=== PATIENT | male | born 1960 | race Caucasian/White ===

== ENCOUNTER 2018-01-01 21:25 | Inpatient (IN) ==
[2018-01-01] MEDS ORDERED: MORPHINE 2 MG/1 ML SYRINGE IV STA (23:46)
[2018-01-01] MEDS ORDERED: NITROGLYCERIN 2% OINT 1 INCH/GM PACK TOP STA (23:46)
[2018-01-01] MEDS ORDERED: ONDANSETRON 4 MG/2 ML VIAL IV STA (23:46)
[2018-01-01] MEDS ORDERED: ASPIRIN 325 MG TABLET PO STA (23:46)
[2018-01-01] MEDS ORDERED: ALUM/MAG/SIMETH/LIDO VISC 1:1 30 ML BOTTLE PO STA (23:46)
[2018-01-01] MEDS ORDERED: PANTOPRAZOLE 40 MG VIAL IV STA (23:46)
[2018-01-01] MEDS ORDERED: PANTOPRAZOLE 40 MG VIAL IV ONE (23:57)
[2018-01-01] MEDS ORDERED: ONDANSETRON 4 MG/2 ML VIAL ONE (23:57)
[2018-01-01] MEDS ORDERED: ASPIRIN 325 MG TABLET ONE (23:57)
[2018-01-01] MEDS ORDERED: MORPHINE 2 MG/1 ML SYRINGE ONE (23:57)
[2018-01-01] MEDS ORDERED: NITROGLYCERIN 2% OINT 1 INCH/GM PACK TOP ONE (23:57)
[2018-01-01] MEDS ORDERED: ALUM/MAG/SIMETH/LIDO VISC 1:1 30 ML BOTTLE PO ONE (23:58)
[2018-01-02 00:36] LABS: Apearance,Urine CLEAR (Clear); Bilirubin,Urine Negative (Negative); Blood, Urine Negative (Negative); Glucose,Urine (UA) Negative (Negative); Ketones,Urine Negative (Negative); Nitrite,Urine Negative (Negative); Protein,Urine Negative; Urine Color Straw (Yellow); Urine Specific Gravity 1.005 (1.001-1.035); Urine Urobilinogen < 2.0 EU/DL (0.2-1.0); WBC,Urine <1 /HPF (0-6)
[2018-01-02 00:48] LABS: Barbiturates Screen,Urine Negative (Negative); Benzodiazepines Screen,Urine Negative (Negative); Cannabinoid Screen,Urine Negative (Negative); Opiate Screen,Urine Negative (Negative); Phencyclidine Screen,Urine Negative (Negative)
[2018-01-02 01:18] LABS: Basophils # 0.1 10*3/uL (0.0-0.2); Basophils % 0.7 % (0.0-0.8); Eosinophils # 0.2 10*3/uL (0.0-0.87); Eosinophils % 2.8 % (0.00-10.9); Hematocrit 44.8 VOL% (42.0-52.0); Hemoglobin 15.9 GM/DL (14.0-18.0); Immature Granulocytes % 0.4 %; Immature Granulocytes Absolute 0.03 #; Lymphocytes # 2.2 10*3/uL (1.4-4.0); Lymphocytes % 29.2 % (21.2-54.2); Mean Corpuscular HGB Conc 35.5 GM/DL (32-36); Mean Corpuscular Hemoglobin 33 PG (27-34); Mean Corpuscular Volume 93.9 FL (87-102); Monocytes # 0.4 10*3/uL (0.11-0.8); Monocytes % 5.1 % (1.7-12.7); Neutrophils # 4.7 10*3/uL (1.4-7.4); Neutrophils % 61.8 % (38.7-73.9); Platelet Count 133 T/CUMM (130-400); Red Blood Count 4.77 MC/CUMM (3.8-5.5); Red Cell Distribution Width 11.7 % (9.3-17.3); White Blood Count 7.6 T/CUMM (4-12)
[2018-01-02 01:27] LABS: INR 0.9
[2018-01-02 01:47] LABS: Potassium 3.7 MMOL/L (3.5-5.1)
[2018-01-02 01:49] LABS: Calcium 9.8 MG/DL (8.5-10.1)
[2018-01-02 01:50] LABS: Albumin 4.4 G/DL (3.4-5.0)
[2018-01-02 01:51] LABS: Osmolality,Calculated 276.7 MOS/KG (273-304)
[2018-01-02 01:55] LABS: Bilirubin,Total 0.5 MG/DL (0.2-1.0); Total Protein 7.8 G/DL (6.4-8.3)
[2018-01-02 03:19] LABS: Platelet Estimate Normal
[2018-01-02] MEDS ORDERED: MAGNESIUM SULF RIDER 4 GM in PREMIX 1 EACH IV PRN (03:46)
[2018-01-02] MEDS ORDERED: ONDANSETRON 4 MG/2 ML VIAL IV PRN (03:46)
[2018-01-02] MEDS ORDERED: DEXTROSE 50% 25 GM/50 ML VIAL IV PRN (03:46)
[2018-01-02] MEDS ORDERED: GLUCAGON 1 MG VIAL IM PRN (03:46)
[2018-01-02] MEDS ORDERED: SODIUM CHLORIDE 0.9% 1,000 ML IV SCH (03:46)
[2018-01-02] MEDS ORDERED: MAGNESIUM SULF RIDER 2 GM in PREMIX 1 EACH IV PRN (03:46)
[2018-01-02] MEDS ORDERED: POTASSIUM CHLORIDE 20 MEQ TABLET PO PRN (03:46)
[2018-01-02 05:23] LABS: Basophils % 0.5 % (0.0-0.8); Eosinophils # 0.2 10*3/uL (0.0-0.87); Eosinophils % 2.9 % (0.00-10.9); Hematocrit 46.8 VOL% (42.0-52.0); Hemoglobin 16.4 GM/DL (14.0-18.0); Immature Granulocytes % 0.5 %; Immature Granulocytes Absolute 0.04 #; Lymphocytes # 2.7 10*3/uL (1.4-4.0); Mean Corpuscular Hemoglobin 34 PG (27-34); Mean Corpuscular Volume 95.7 FL (87-102); Mean Platelet Volume 10.9 FL (9.6-12.0); Monocytes # 0.5 10*3/uL (0.11-0.8); Monocytes % 5.9 % (1.7-12.7); Neutrophils # 4.2 10*3/uL (1.4-7.4); Neutrophils % 55.2 % (38.7-73.9); Platelet Count 192 T/CUMM (130-400); Red Blood Count 4.89 MC/CUMM (3.8-5.5); Red Cell Distribution Width 11.9 % (9.3-17.3); White Blood Count 7.6 T/CUMM (4-12)
[2018-01-02 06:42] LABS: Albumin 4.1 G/DL (3.4-5.0); Bilirubin,Total 0.6 MG/DL (0.2-1.0); Calcium 9.4 MG/DL (8.5-10.1); Osmolality,Calculated 275.8 MOS/KG (273-304); Potassium 3.8 MMOL/L (3.5-5.1); Thyroid Stimulating Hormone 2.1 uIU/ml (0.358-3.74); Total Protein 6.8 G/DL (6.4-8.3); VLDL CHOLESTEROL 55.2 MG/DL
[2018-01-02 06:52] LABS: Troponin I Only 0.016 NG/ML (0.00-0.045)
[2018-01-02] MEDS: INSULIN REGULAR 100 UNIT/ML SUBCUT SCH ×4 (08:00→21:13)
[2018-01-02] MEDS: DIGOXIN 0.125 MG TABLET PO SCH (08:39)
[2018-01-02] MEDS: SOTALOL 80 MG TABLET PO SCH ×2 (08:39→21:12)
[2018-01-02] MEDS: FUROSEMIDE 40 MG TABLET PO SCH ×2 (08:40→15:57)
[2018-01-02] MEDS: GLIMEPIRIDE 2 MG TABLET PO SCH (08:40)
[2018-01-02] MEDS: ASPIRIN EC 81 MG TABLET PO SCH (08:40)
[2018-01-02] MEDS: LORATADINE 10 MG TABLET PO SCH ×2 (08:40→21:13)
[2018-01-02] MEDS: PANTOPRAZOLE 40 MG TABLET PO SCH (08:41)
[2018-01-02] MEDS: LACTOBACILLUS ACIDOPHILUS/BULGARICUS CAPLET PO SCH ×2 (08:41→21:11)
[2018-01-02] MEDS: ATORVASTATIN 20 MG TABLET PO SCH (08:41)
[2018-01-02] MEDS ORDERED: CARVEDILOL 12.5 MG TABLET PO SCH (09:00)
[2018-01-02 13:43] LABS: Troponin I Only < 0.015 NG/ML (0.00-0.045)
[2018-01-02 20:19] LABS: Troponin I Only < 0.015 NG/ML (0.00-0.045)
[2018-01-02] MEDS: POTASSIUM CHLORIDE 20 MEQ TABLET PO SCH (21:12)
[2018-01-03 05:14] LABS: Basophils # 0.1 10*3/uL (0.0-0.2); Basophils % 0.6 % (0.0-0.8); Eosinophils # 0.2 10*3/uL (0.0-0.87); Eosinophils % 2.8 % (0.00-10.9); Hematocrit 46.6 VOL% (42.0-52.0); Hemoglobin 16.6 GM/DL (14.0-18.0); Immature Granulocytes % 0.5 %; Immature Granulocytes Absolute 0.04 #; Lymphocytes # 2.6 10*3/uL (1.4-4.0); Mean Corpuscular HGB Conc 35.6 GM/DL (32-36); Mean Corpuscular Hemoglobin 33 PG (27-34); Mean Corpuscular Volume 92.6 FL (87-102); Mean Platelet Volume 10.8 FL (9.6-12.0); Monocytes # 0.5 10*3/uL (0.11-0.8); Monocytes % 6.1 % (1.7-12.7); Neutrophils # 4.4 10*3/uL (1.4-7.4); Platelet Count 195 T/CUMM (130-400); Red Blood Count 5.03 MC/CUMM (3.8-5.5); Red Cell Distribution Width 11.9 % (9.3-17.3); White Blood Count 7.8 T/CUMM (4-12)
[2018-01-03 05:44] LABS: Calcium 8.8 MG/DL (8.5-10.1); Osmolality,Calculated 279.5 MOS/KG (273-304); Potassium 3.7 MMOL/L (3.5-5.1)
[2018-01-03] MEDS: ASPIRIN EC 81 MG TABLET PO SCH (10:15)
[2018-01-03] MEDS: SOTALOL 80 MG TABLET PO SCH ×2 (10:16→21:50)
[2018-01-03] MEDS: GLIMEPIRIDE 2 MG TABLET PO SCH (10:23)
[2018-01-03] MEDS: LACTOBACILLUS ACIDOPHILUS/BULGARICUS CAPLET PO SCH ×2 (10:23→21:51)
[2018-01-03] MEDS: FUROSEMIDE 40 MG TABLET PO SCH ×2 (10:23→18:13)
[2018-01-03] MEDS: ATORVASTATIN 20 MG TABLET PO SCH (10:24)
[2018-01-03] MEDS: MULTIVITAMIN (CENTRUM) TABLET PO SCH (10:24)
[2018-01-03] MEDS: PANTOPRAZOLE 40 MG TABLET PO SCH (10:24)
[2018-01-03] MEDS: LORATADINE 10 MG TABLET PO SCH ×2 (10:24→21:51)
[2018-01-03] MEDS: POTASSIUM CHLORIDE 20 MEQ TABLET PO SCH ×2 (10:24→21:51)
[2018-01-03] MEDS: INSULIN REGULAR 100 UNIT/ML SUBCUT SCH ×4 (10:26→21:53)
[2018-01-03] MEDS: MONTELUKAST 10 MG TABLET PO SCH (10:27)
[2018-01-03] MEDS ORDERED: MAGNESIUM SULF RIDER 2 GM in PREMIX 1 EACH IV PRN (12:32)
[2018-01-03] MEDS ORDERED: POTASSIUM CHLORIDE RIDER 10 MEQ in PREMIX 1 EACH IV PRN (12:32)
[2018-01-03] MEDS: DEXTROSE 5% NACL 0.45% 1,000 ML IV SCH ×2 (18:17→21:52)
[2018-01-04] MEDS: DEXTROSE 5% NACL 0.45% 1,000 ML IV SCH ×5 (02:27→22:18)
[2018-01-04 05:18] LABS: Basophils # 0.1 10*3/uL (0.0-0.2); Basophils % 0.7 % (0.0-0.8); Eosinophils # 0.3 10*3/uL (0.0-0.87); Eosinophils % 3.5 % (0.00-10.9); Hematocrit 44.5 VOL% (42.0-52.0); Hemoglobin 15.9 GM/DL (14.0-18.0); Immature Granulocytes % 0.3 %; Immature Granulocytes Absolute 0.02 #; Lymphocytes # 2.7 10*3/uL (1.4-4.0); Lymphocytes % 36.9 % (21.2-54.2); Mean Corpuscular HGB Conc 35.7 GM/DL (32-36); Mean Corpuscular Hemoglobin 33 PG (27-34); Mean Corpuscular Volume 92.9 FL (87-102); Mean Platelet Volume 10.8 FL (9.6-12.0); Monocytes # 0.6 10*3/uL (0.11-0.8); Monocytes % 7.4 % (1.7-12.7); Neutrophils # 3.8 10*3/uL (1.4-7.4); Neutrophils % 51.2 % (38.7-73.9); Platelet Count 177 T/CUMM (130-400); Red Blood Count 4.79 MC/CUMM (3.8-5.5); Red Cell Distribution Width 11.8 % (9.3-17.3); White Blood Count 7.4 T/CUMM (4-12)
[2018-01-04 05:55] LABS: Calcium 8.2 MG/DL (8.5-10.1); Osmolality,Calculated 281.4 MOS/KG (273-304)
[2018-01-04] MEDS: POTASSIUM CHLORIDE 20 MEQ TABLET PO SCH ×2 (08:22→21:35)
[2018-01-04] MEDS: SOTALOL 80 MG TABLET PO SCH ×2 (08:23→21:35)
[2018-01-04] MEDS: PANTOPRAZOLE 40 MG TABLET PO SCH (08:24)
[2018-01-04] MEDS: LACTOBACILLUS ACIDOPHILUS/BULGARICUS CAPLET PO SCH ×2 (08:24→21:35)
[2018-01-04] MEDS: ATORVASTATIN 20 MG TABLET PO SCH (08:25)
[2018-01-04] MEDS: ASPIRIN EC 81 MG TABLET PO SCH (08:25)
[2018-01-04] MEDS: DIGOXIN 0.125 MG TABLET PO SCH (08:25)
[2018-01-04] MEDS: MULTIVITAMIN (CENTRUM) TABLET PO SCH (08:25)
[2018-01-04] MEDS: FUROSEMIDE 40 MG TABLET PO SCH ×2 (08:26→16:29)
[2018-01-04] MEDS: GLIMEPIRIDE 2 MG TABLET PO SCH (08:26)
[2018-01-04] MEDS: INSULIN REGULAR 100 UNIT/ML SUBCUT SCH ×4 (08:26→21:36)
[2018-01-04] MEDS: LORATADINE 10 MG TABLET PO SCH ×2 (08:27→21:36)
[2018-01-04] MEDS: MONTELUKAST 10 MG TABLET PO SCH (21:35)
[2018-01-05] MEDS: DEXTROSE 5% NACL 0.45% 1,000 ML IV SCH ×2 (03:08→04:16)
[2018-01-05 04:47] LABS: Basophils # 0.1 10*3/uL (0.0-0.2); Basophils % 0.7 % (0.0-0.8); Eosinophils # 0.2 10*3/uL (0.0-0.87); Eosinophils % 2.8 % (0.00-10.9); Hematocrit 45.2 VOL% (42.0-52.0); Hemoglobin 15.7 GM/DL (14.0-18.0); Immature Granulocytes % 0.3 %; Immature Granulocytes Absolute 0.02 #; Lymphocytes # 2.5 10*3/uL (1.4-4.0); Lymphocytes % 33.5 % (21.2-54.2); Mean Corpuscular HGB Conc 34.7 GM/DL (32-36); Mean Corpuscular Hemoglobin 33 PG (27-34); Mean Corpuscular Volume 94.2 FL (87-102); Mean Platelet Volume 10.7 FL (9.6-12.0); Monocytes # 0.6 10*3/uL (0.11-0.8); Monocytes % 7.4 % (1.7-12.7); Neutrophils # 4.1 10*3/uL (1.4-7.4); Neutrophils % 55.3 % (38.7-73.9); Platelet Count 183 T/CUMM (130-400); Red Cell Distribution Width 11.9 % (9.3-17.3); White Blood Count 7.4 T/CUMM (4-12)
[2018-01-05 05:17] LABS: Calcium 8.3 MG/DL (8.5-10.1); Osmolality,Calculated 278.5 MOS/KG (273-304); Potassium 4.1 MMOL/L (3.5-5.1)
[2018-01-05] MEDS ORDERED: DIAZEPAM 5 MG TABLET PO ONE (08:00)
[2018-01-05] MEDS ORDERED: diphenhydrAMINE CAP 25 MG CAPSULE PO ONE (08:00)
[2018-01-05] MEDS ORDERED: HEPARIN/NACL 0.9% 2 UNITS/ML 1,000 ML IV ONE (08:09)
[2018-01-05] MEDS ORDERED: VERAPAMIL 5 MG/2 ML VIAL ONE (08:12)
[2018-01-05] MEDS ORDERED: MIDAZOLAM 2 MG/2 ML VIAL ONE (08:12)
[2018-01-05] MEDS ORDERED: fentaNYL 100 MCG/2 ML VIAL ONE (08:12)
[2018-01-05] MEDS ORDERED: NITROGLYCERIN DRIP 50 MG/250 ML BOTTLE IV ONE (08:12)
[2018-01-05] MEDS ORDERED: LIDOCAINE 1%/EPI INJ 20 ML VIAL ONE (08:12)
[2018-01-05] MEDS ORDERED: LIDOCAINE 1% 20 ML VIAL ONE (08:15)
[2018-01-05] MEDS ORDERED: ASPIRIN 325 MG TABLET ONE (08:25)
[2018-01-05] MEDS ORDERED: methylPREDNISolone SOD SUC 125 MG/2 ML VIAL ONE (08:31)
[2018-01-05] MEDS ORDERED: ENOXAPARIN 60 MG/0.6 ML SYRINGE ONE (08:38)
[2018-01-05] MEDS: MULTIVITAMIN (CENTRUM) TABLET PO SCH (09:29)
[2018-01-05] MEDS: ATORVASTATIN 20 MG TABLET PO SCH (09:29)
[2018-01-05] MEDS: GLIMEPIRIDE 2 MG TABLET PO SCH (09:29)
[2018-01-05] MEDS: MONTELUKAST 10 MG TABLET PO SCH (09:29)
[2018-01-05] MEDS: SOTALOL 80 MG TABLET PO SCH (09:29)
[2018-01-05] MEDS: LACTOBACILLUS ACIDOPHILUS/BULGARICUS CAPLET PO SCH (09:29)
[2018-01-05] MEDS: LORATADINE 10 MG TABLET PO SCH (09:30)
[2018-01-05] MEDS: INSULIN REGULAR 100 UNIT/ML SUBCUT SCH ×2 (09:30→16:09)
[2018-01-05] MEDS: POTASSIUM CHLORIDE 20 MEQ TABLET PO SCH (09:30)
[2018-01-05] MEDS: PANTOPRAZOLE 40 MG TABLET PO SCH (09:30)
[2018-01-05] MEDS: ASPIRIN EC 81 MG TABLET PO SCH (09:30)
[2018-01-05] MEDS: FUROSEMIDE 40 MG TABLET PO SCH (09:30)
[2018-01-05] MEDS ORDERED: BISACODYL 5 MG TABLET PO PRN (13:52)
[2018-01-05] MEDS ORDERED: ACETAMINOPHEN 325 MG TABLET PO PRN (13:52)
[2018-01-05] MEDS ORDERED: ZALEPLON 5 MG CAPSULE PO PRN (13:52)
[2018-01-05] MEDS ORDERED: guaiFENesin/DM ER 600-30 MG TABLET PO PRN (13:52)
[2018-01-05 15:57] VITALS: BP 121/72
[2018-01-05] MEDS ORDERED: PANTOPRAZOLE 40 MG TABLET PO SCH (21:00)
== END 2018-01-05 15:20 | disposition home or self-care (01) | DRG 287 ==
LOC: N.ED 21:25 → N.EDINP 01-02 02:30 → N.ICU 01-02 03:50 → N.TELEN 01-02 20:33
PROVIDERS: ADMIT Internal Medicine Cardiovascular Disease; ATTEND Internal Medicine Cardiovascular Disease
PROC: CLCCHCL (ICD-10-PCS; 2018-01-05 09:15)

== ENCOUNTER 2018-04-21 05:52 | Observation (INO) ==
[2018-04-21 06:56] LABS: Basophils # 0.1 10*3/uL (0.0-0.2); Basophils % 0.8 % (0.0-0.8); Eosinophils # 0.1 10*3/uL (0.0-0.87); Eosinophils % 2.3 % (0.00-10.9); Hematocrit 45.2 VOL% (42.0-52.0); Hemoglobin 15.5 GM/DL (14.0-18.0); Immature Granulocytes % 0.5 %; Immature Granulocytes Absolute 0.03 #; Lymphocytes % 32.8 % (21.2-54.2); Mean Corpuscular HGB Conc 34.3 GM/DL (32-36); Mean Corpuscular Hemoglobin 33 PG (27-34); Mean Corpuscular Volume 95.6 FL (87-102); Mean Platelet Volume 10.3 FL (9.6-12.0); Monocytes # 0.4 10*3/uL (0.11-0.8); Neutrophils # 3.5 10*3/uL (1.4-7.4); Neutrophils % 57.6 % (38.7-73.9); Platelet Count 174 T/CUMM (130-400); Red Blood Count 4.73 MC/CUMM (3.8-5.5); Red Cell Distribution Width 12.1 % (9.3-17.3); White Blood Count 6.1 T/CUMM (4-12)
[2018-04-21 07:32] LABS: Calcium 8.6 MG/DL (8.5-10.1); Osmolality,Calculated 278.4 MOS/KG (273-304); Potassium 3.9 MMOL/L (3.5-5.1)
[2018-04-21 08:52] LABS: Apearance,Urine CLEAR (Clear); Bilirubin,Urine Negative (Negative); Blood, Urine Negative (Negative); Glucose,Urine (UA) Negative (Negative); Ketones,Urine Negative (Negative); Mucus,Urine Occasional /LPF (Occasional); Nitrite,Urine Negative (Negative); Protein,Urine Negative; RBC,Urine 1 /HPF (0-4); Urine Color Yellow (Yellow); Urine Specific Gravity 1.016 (1.001-1.035); Urine Urobilinogen < 2.0 EU/DL (0.2-1.0); WBC,Urine <1 /HPF (0-6)
[2018-04-22 03:15] LABS: Basophils % 0.4 % (0.0-0.8); Eosinophils # 0.1 10*3/uL (0.0-0.87); Eosinophils % 1.5 % (0.00-10.9); Hematocrit 41.1 VOL% (42.0-52.0); Hemoglobin 13.9 GM/DL (14.0-18.0); Immature Granulocytes % 0.4 %; Immature Granulocytes Absolute 0.03 #; Lymphocytes # 1.7 10*3/uL (1.4-4.0); Lymphocytes % 24.6 % (21.2-54.2); Mean Corpuscular HGB Conc 33.8 GM/DL (32-36); Mean Corpuscular Hemoglobin 32 PG (27-34); Mean Corpuscular Volume 95.1 FL (87-102); Mean Platelet Volume 10.5 FL (9.6-12.0); Monocytes # 0.3 10*3/uL (0.11-0.8); Monocytes % 4.9 % (1.7-12.7); Neutrophils # 4.6 10*3/uL (1.4-7.4); Neutrophils % 68.2 % (38.7-73.9); Platelet Count 145 T/CUMM (130-400); Red Blood Count 4.32 MC/CUMM (3.8-5.5); Red Cell Distribution Width 12.3 % (9.3-17.3); White Blood Count 6.8 T/CUMM (4-12)
[2018-04-22 03:35] LABS: Calcium 8.1 MG/DL (8.5-10.1); Osmolality,Calculated 276.5 MOS/KG (273-304); Potassium 3.8 MMOL/L (3.5-5.1)
[2018-04-23 05:43] LABS: Calcium 8.4 MG/DL (8.5-10.1); Osmolality,Calculated 278.4 MOS/KG (273-304); Potassium 3.6 MMOL/L (3.5-5.1)
[2018-04-23 11:47] VITALS: BP 120/66
== END 2018-04-23 13:24 | disposition home or self-care (01) ==
LOC: N.ICU 05:52 → N.CL 05:52 → N.ICU 12:35 → N.TELEN 04-22 18:31
PROVIDERS: ADMIT Internal Medicine Clinical Cardiac Electrophysiology; ATTEND Internal Medicine Clinical Cardiac Electrophysiology
PROC: CLEPAVT (ICD-10-PCS; 2018-04-21 08:45)

== ENCOUNTER 2018-04-30 15:54 | Inpatient (IN) ==
[2018-04-30] MEDS ORDERED: ZALEPLON 5 MG CAPSULE PO PRN (16:21)
[2018-04-30] MEDS ORDERED: ONDANSETRON 4 MG/2 ML VIAL IV PRN (16:21)
[2018-04-30] MEDS ORDERED: ACETAMINOPHEN 325 MG TABLET PO PRN (16:21)
[2018-04-30] MEDS ORDERED: MAGNESIUM SULF RIDER 4 GM in PREMIX 1 EACH IV PRN (16:21)
[2018-04-30] MEDS ORDERED: MAGNESIUM SULF RIDER 2 GM in PREMIX 1 EACH IV PRN (16:21)
[2018-04-30] MEDS ORDERED: MORPHINE 4 MG/1 ML VIAL IV PRN (16:21)
[2018-04-30] MEDS ORDERED: ENOXAPARIN 40 MG/0.4 ML SYRINGE SUBCUT SCH (16:30)
[2018-04-30] MEDS ORDERED: diphenhydrAMINE CAP 25 MG CAPSULE PO PRN (16:33)
[2018-04-30] MEDS: MEXILETINE 150 MG CAPSULE PO SCH ×2 (17:22→21:00)
[2018-04-30 18:49] LABS: Basophils % 0.5 % (0.0-0.8); Eosinophils # 0.1 10*3/uL (0.0-0.87); Eosinophils % 1.7 % (0.00-10.9); Hematocrit 41.1 VOL% (42.0-52.0); Hemoglobin 14.5 GM/DL (14.0-18.0); Immature Granulocytes % 0.3 %; Immature Granulocytes Absolute 0.02 #; Lymphocytes # 2.3 10*3/uL (1.4-4.0); Lymphocytes % 38.8 % (21.2-54.2); Mean Corpuscular HGB Conc 35.3 GM/DL (32-36); Mean Corpuscular Hemoglobin 33 PG (27-34); Mean Corpuscular Volume 93.2 FL (87-102); Mean Platelet Volume 10.7 FL (9.6-12.0); Monocytes # 0.3 10*3/uL (0.11-0.8); Monocytes % 5.5 % (1.7-12.7); Neutrophils # 3.2 10*3/uL (1.4-7.4); Neutrophils % 53.2 % (38.7-73.9); Platelet Count 207 T/CUMM (130-400); Red Blood Count 4.41 MC/CUMM (3.8-5.5)
[2018-04-30 19:24] LABS: Albumin 3.4 G/DL (3.4-5.0); Bilirubin,Total 0.4 MG/DL (0.2-1.0); Calcium 8.5 MG/DL (8.5-10.1); Osmolality,Calculated 279.5 MOS/KG (273-304); Potassium 3.4 MMOL/L (3.5-5.1); Thyroid Stimulating Hormone 2.01 uIU/ml (0.358-3.74); Total Protein 6.9 G/DL (6.4-8.3)
[2018-04-30] MEDS: LORATADINE 10 MG TABLET PO SCH (20:56)
[2018-04-30] MEDS: LACTOBACILLUS ACIDOPHILUS/BULGARICUS CAPLET PO SCH (20:57)
[2018-04-30] MEDS: SOTALOL 80 MG TABLET PO SCH (20:57)
[2018-04-30] MEDS: APIXABAN 5 MG TABLET PO SCH (20:58)
[2018-04-30] MEDS: POTASSIUM CHLORIDE 20 MEQ TABLET PO SCH (20:58)
[2018-04-30] MEDS: FLUTICASONE 50 MCG NASAL SPRAY 16 GM BOTTLE BOTH NARES SCH (20:59)
[2018-04-30] MEDS: POTASSIUM CHLORIDE 20 MEQ/15 ML UDCUP PER TUBE PRN ×2 (21:27→23:40)
[2018-04-30] MEDS: MONTELUKAST 10 MG TABLET PO SCH (21:27)
[2018-04-30] MEDS: FUROSEMIDE 40 MG TABLET PO SCH (21:27)
[2018-05-01] MEDS: POTASSIUM CHLORIDE 20 MEQ/15 ML UDCUP PER TUBE PRN (02:05)
[2018-05-01 05:21] LABS: Basophils % 0.6 % (0.0-0.8); Eosinophils # 0.2 10*3/uL (0.0-0.87); Eosinophils % 2.3 % (0.00-10.9); Hematocrit 43.9 VOL% (42.0-52.0); Immature Granulocytes % 0.3 %; Immature Granulocytes Absolute 0.02 #; Lymphocytes # 2.6 10*3/uL (1.4-4.0); Lymphocytes % 40.5 % (21.2-54.2); Mean Corpuscular HGB Conc 34.2 GM/DL (32-36); Mean Corpuscular Hemoglobin 33 PG (27-34); Mean Corpuscular Volume 95.6 FL (87-102); Mean Platelet Volume 9.9 FL (9.6-12.0); Monocytes # 0.5 10*3/uL (0.11-0.8); Monocytes % 7.8 % (1.7-12.7); Neutrophils # 3.1 10*3/uL (1.4-7.4); Neutrophils % 48.5 % (38.7-73.9); Platelet Count 199 T/CUMM (130-400); Red Blood Count 4.59 MC/CUMM (3.8-5.5); Red Cell Distribution Width 12.1 % (9.3-17.3); White Blood Count 6.4 T/CUMM (4-12)
[2018-05-01 05:57] LABS: Albumin 3.7 G/DL (3.4-5.0); Bilirubin,Total 0.7 MG/DL (0.2-1.0); Calcium 8.4 MG/DL (8.5-10.1); Osmolality,Calculated 281.3 MOS/KG (273-304); Potassium 4.2 MMOL/L (3.5-5.1); Total Protein 7.2 G/DL (6.4-8.3)
[2018-05-01] MEDS: FUROSEMIDE 40 MG TABLET PO SCH ×2 (07:39→17:05)
[2018-05-01] MEDS: valACYclovir 500 MG TABLET PO SCH (07:39)
[2018-05-01] MEDS: MEXILETINE 150 MG CAPSULE PO SCH ×3 (07:39→21:00)
[2018-05-01] MEDS: GLIMEPIRIDE 2 MG TABLET PO SCH (07:39)
[2018-05-01] MEDS ORDERED: MAGNESIUM OXIDE 400 MG TABLET PO ONE (08:43)
[2018-05-01] MEDS: DOCUSATE SODIUM 100 MG CAPSULE PO PRN (08:56)
[2018-05-01] MEDS: APIXABAN 5 MG TABLET PO SCH ×2 (08:56→20:55)
[2018-05-01] MEDS: POTASSIUM CHLORIDE 20 MEQ TABLET PO SCH ×2 (08:56→20:55)
[2018-05-01] MEDS: ASPIRIN EC 81 MG TABLET PO SCH (08:57)
[2018-05-01] MEDS: PANTOPRAZOLE 40 MG TABLET PO SCH (08:57)
[2018-05-01] MEDS: LACTOBACILLUS ACIDOPHILUS/BULGARICUS CAPLET PO SCH ×2 (08:57→20:55)
[2018-05-01] MEDS: SOTALOL 80 MG TABLET PO SCH ×2 (08:57→20:55)
[2018-05-01] MEDS: ATORVASTATIN 20 MG TABLET PO SCH (08:57)
[2018-05-01] MEDS ORDERED: PANTOPRAZOLE 40 MG TABLET PO SCH (09:00)
[2018-05-01] MEDS: MULTIVITAMIN (CENTRUM) TABLET PO SCH (09:07)
[2018-05-01] MEDS: LORATADINE 10 MG TABLET PO SCH ×2 (10:40→20:55)
[2018-05-01] MEDS: LOSARTAN 25 MG TABLET PO SCH (10:41)
[2018-05-01] MEDS: FLUTICASONE 50 MCG NASAL SPRAY 16 GM BOTTLE BOTH NARES SCH ×2 (10:42→20:56)
[2018-05-01] MEDS: NITROGLYCERIN 2% OINT 1 INCH/GM PACK TOP SCH ×2 (14:45→20:59)
[2018-05-01] MEDS: MONTELUKAST 10 MG TABLET PO SCH (20:55)
[2018-05-01] MEDS ORDERED: MEXILETINE 150 MG CAPSULE PO SCH (21:00)
[2018-05-02 04:09] LABS: Basophils % 0.6 % (0.0-0.8); Eosinophils # 0.1 10*3/uL (0.0-0.87); Eosinophils % 1.8 % (0.00-10.9); Hematocrit 42.8 VOL% (42.0-52.0); Hemoglobin 14.8 GM/DL (14.0-18.0); Immature Granulocytes % 0.4 %; Immature Granulocytes Absolute 0.03 #; Lymphocytes # 2.6 10*3/uL (1.4-4.0); Lymphocytes % 35.3 % (21.2-54.2); Mean Corpuscular HGB Conc 34.6 GM/DL (32-36); Mean Corpuscular Hemoglobin 33 PG (27-34); Mean Corpuscular Volume 93.9 FL (87-102); Monocytes # 0.5 10*3/uL (0.11-0.8); Monocytes % 6.7 % (1.7-12.7); Neutrophils % 55.2 % (38.7-73.9); Platelet Count 202 T/CUMM (130-400); Red Blood Count 4.56 MC/CUMM (3.8-5.5); White Blood Count 7.3 T/CUMM (4-12)
[2018-05-02 04:28] LABS: Calcium 9.3 MG/DL (8.5-10.1); Osmolality,Calculated 281.4 MOS/KG (273-304); Potassium 3.8 MMOL/L (3.5-5.1)
[2018-05-02] MEDS: MEXILETINE 150 MG CAPSULE PO SCH ×3 (06:12→20:59)
[2018-05-02] MEDS: SOTALOL 80 MG TABLET PO SCH ×2 (08:30→20:58)
[2018-05-02] MEDS: ASPIRIN EC 81 MG TABLET PO SCH (08:31)
[2018-05-02] MEDS: ATORVASTATIN 20 MG TABLET PO SCH (08:32)
[2018-05-02] MEDS: GLIMEPIRIDE 2 MG TABLET PO SCH (08:32)
[2018-05-02] MEDS: FUROSEMIDE 40 MG TABLET PO SCH ×2 (08:32→16:14)
[2018-05-02] MEDS: LACTOBACILLUS ACIDOPHILUS/BULGARICUS CAPLET PO SCH ×2 (08:32→20:58)
[2018-05-02] MEDS: PANTOPRAZOLE 40 MG TABLET PO SCH (08:32)
[2018-05-02] MEDS: LORATADINE 10 MG TABLET PO SCH ×2 (08:33→20:59)
[2018-05-02] MEDS: POTASSIUM CHLORIDE 20 MEQ TABLET PO SCH ×2 (08:33→20:59)
[2018-05-02] MEDS: LOSARTAN 25 MG TABLET PO SCH (08:33)
[2018-05-02] MEDS: APIXABAN 5 MG TABLET PO SCH ×2 (08:33→20:59)
[2018-05-02] MEDS: valACYclovir 500 MG TABLET PO SCH (08:35)
[2018-05-02] MEDS: FLUTICASONE 50 MCG NASAL SPRAY 16 GM BOTTLE BOTH NARES SCH ×2 (11:34→20:59)
[2018-05-02] MEDS: MULTIVITAMIN (CENTRUM) TABLET PO SCH (11:35)
[2018-05-02] MEDS: NITROGLYCERIN 2% OINT 1 INCH/GM PACK TOP SCH (11:35)
[2018-05-02] MEDS: SPIRONOLACTONE 25 MG TABLET PO SCH (13:39)
[2018-05-02] MEDS: ISOSORBIDE MONONITRATE 30 MG TABLET PO SCH (13:40)
[2018-05-02] MEDS: ASCORBIC ACID 500 MG TABLET PO SCH ×2 (13:40→20:59)
[2018-05-02] MEDS: MAGNESIUM CHLORIDE 64 MG TABLET PO SCH ×2 (16:15→20:59)
[2018-05-02] MEDS: MONTELUKAST 10 MG TABLET PO SCH (20:59)
[2018-05-03 05:00] LABS: Basophils % 0.5 % (0.0-0.8); Eosinophils # 0.1 10*3/uL (0.0-0.87); Hematocrit 41.3 VOL% (42.0-52.0); Hemoglobin 14.5 GM/DL (14.0-18.0); Immature Granulocytes % 0.5 %; Immature Granulocytes Absolute 0.03 #; Lymphocytes # 2.1 10*3/uL (1.4-4.0); Lymphocytes % 31.3 % (21.2-54.2); Mean Corpuscular HGB Conc 35.1 GM/DL (32-36); Mean Corpuscular Hemoglobin 32 PG (27-34); Mean Corpuscular Volume 92.4 FL (87-102); Mean Platelet Volume 10.3 FL (9.6-12.0); Monocytes # 0.4 10*3/uL (0.11-0.8); Monocytes % 6.6 % (1.7-12.7); Neutrophils # 3.9 10*3/uL (1.4-7.4); Neutrophils % 59.1 % (38.7-73.9); Platelet Count 214 T/CUMM (130-400); Red Blood Count 4.47 MC/CUMM (3.8-5.5); White Blood Count 6.6 T/CUMM (4-12)
[2018-05-03 05:23] LABS: Calcium 8.3 MG/DL (8.5-10.1); Osmolality,Calculated 284.3 MOS/KG (273-304); Potassium 3.4 MMOL/L (3.5-5.1)
[2018-05-03] MEDS: POTASSIUM CHLORIDE 20 MEQ/15 ML UDCUP PER TUBE PRN ×2 (06:18→08:36)
[2018-05-03] MEDS: MEXILETINE 150 MG CAPSULE PO SCH ×3 (06:18→21:01)
[2018-05-03] MEDS: PANTOPRAZOLE 40 MG TABLET PO SCH (06:28)
[2018-05-03] MEDS: valACYclovir 500 MG TABLET PO SCH (08:30)
[2018-05-03] MEDS: LACTOBACILLUS ACIDOPHILUS/BULGARICUS CAPLET PO SCH ×2 (08:30→20:37)
[2018-05-03] MEDS: ATORVASTATIN 20 MG TABLET PO SCH (08:30)
[2018-05-03] MEDS: ASCORBIC ACID 500 MG TABLET PO SCH ×2 (08:31→20:36)
[2018-05-03] MEDS: LOSARTAN 25 MG TABLET PO SCH (08:31)
[2018-05-03] MEDS: SOTALOL 80 MG TABLET PO SCH ×2 (08:32→20:36)
[2018-05-03] MEDS: ASPIRIN EC 81 MG TABLET PO SCH (08:32)
[2018-05-03] MEDS: MULTIVITAMIN (CENTRUM) TABLET PO SCH (08:32)
[2018-05-03] MEDS: POTASSIUM CHLORIDE 20 MEQ TABLET PO SCH ×2 (08:33→20:37)
[2018-05-03] MEDS: ISOSORBIDE MONONITRATE 30 MG TABLET PO SCH (08:33)
[2018-05-03] MEDS: APIXABAN 5 MG TABLET PO SCH ×2 (08:34→20:37)
[2018-05-03] MEDS: MAGNESIUM CHLORIDE 64 MG TABLET PO SCH ×2 (08:34→20:36)
[2018-05-03] MEDS: FLUTICASONE 50 MCG NASAL SPRAY 16 GM BOTTLE BOTH NARES SCH ×2 (11:05→20:43)
[2018-05-03] MEDS: GLIMEPIRIDE 2 MG TABLET PO SCH (11:05)
[2018-05-03] MEDS: LORATADINE 10 MG TABLET PO SCH ×2 (11:05→20:42)
[2018-05-03] MEDS: SPIRONOLACTONE 25 MG TABLET PO SCH (11:06)
[2018-05-03] MEDS: FUROSEMIDE 40 MG TABLET PO SCH ×2 (11:06→17:08)
[2018-05-03] MEDS ORDERED: POTASSIUM CHLORIDE 20 MEQ TABLET PO ONE (12:15)
[2018-05-03] MEDS: MONTELUKAST 10 MG TABLET PO SCH (20:36)
[2018-05-04 04:56] LABS: Basophils % 0.6 % (0.0-0.8); Eosinophils # 0.2 10*3/uL (0.0-0.87); Eosinophils % 2.3 % (0.00-10.9); Hematocrit 41.5 VOL% (42.0-52.0); Hemoglobin 14.1 GM/DL (14.0-18.0); Immature Granulocytes % 0.3 %; Immature Granulocytes Absolute 0.02 #; Lymphocytes # 2.4 10*3/uL (1.4-4.0); Lymphocytes % 36.1 % (21.2-54.2); Mean Corpuscular Hemoglobin 32 PG (27-34); Mean Platelet Volume 10.5 FL (9.6-12.0); Monocytes # 0.4 10*3/uL (0.11-0.8); Monocytes % 5.9 % (1.7-12.7); Neutrophils # 3.6 10*3/uL (1.4-7.4); Neutrophils % 54.8 % (38.7-73.9); Platelet Count 201 T/CUMM (130-400); Red Blood Count 4.37 MC/CUMM (3.8-5.5); Red Cell Distribution Width 11.9 % (9.3-17.3); White Blood Count 6.6 T/CUMM (4-12)
[2018-05-04 05:15] LABS: Calcium 8.5 MG/DL (8.5-10.1); Osmolality,Calculated 279.4 MOS/KG (273-304); Potassium 3.6 MMOL/L (3.5-5.1)
[2018-05-04] MEDS: PANTOPRAZOLE 40 MG TABLET PO SCH (06:49)
[2018-05-04] MEDS: MEXILETINE 150 MG CAPSULE PO SCH (06:49)
[2018-05-04] MEDS: SOTALOL 80 MG TABLET PO SCH (09:43)
[2018-05-04] MEDS: MAGNESIUM CHLORIDE 64 MG TABLET PO SCH (09:43)
[2018-05-04] MEDS: APIXABAN 5 MG TABLET PO SCH (09:44)
[2018-05-04] MEDS: POTASSIUM CHLORIDE 20 MEQ TABLET PO SCH (09:44)
[2018-05-04] MEDS: LACTOBACILLUS ACIDOPHILUS/BULGARICUS CAPLET PO SCH (09:44)
[2018-05-04] MEDS: LOSARTAN 25 MG TABLET PO SCH (09:44)
[2018-05-04] MEDS: FUROSEMIDE 40 MG TABLET PO SCH (09:45)
[2018-05-04] MEDS: MULTIVITAMIN (CENTRUM) TABLET PO SCH (09:45)
[2018-05-04] MEDS: LORATADINE 10 MG TABLET PO SCH (09:45)
[2018-05-04] MEDS: ASPIRIN EC 81 MG TABLET PO SCH (09:45)
[2018-05-04] MEDS: ASCORBIC ACID 500 MG TABLET PO SCH (09:45)
[2018-05-04] MEDS: DOCUSATE SODIUM 100 MG CAPSULE PO PRN (09:45)
[2018-05-04] MEDS: valACYclovir 500 MG TABLET PO SCH (09:46)
[2018-05-04] MEDS: GLIMEPIRIDE 2 MG TABLET PO SCH (09:46)
[2018-05-04] MEDS: SPIRONOLACTONE 25 MG TABLET PO SCH (09:46)
[2018-05-04] MEDS: ATORVASTATIN 20 MG TABLET PO SCH (09:46)
[2018-05-04] MEDS: FLUTICASONE 50 MCG NASAL SPRAY 16 GM BOTTLE BOTH NARES SCH (09:47)
[2018-05-04] MEDS: ISOSORBIDE MONONITRATE 30 MG TABLET PO SCH (09:47)
[2018-05-04 11:46] VITALS: BP 115/63
[2018-05-04] MEDS ORDERED: POTASSIUM CHLORIDE 20 MEQ TABLET PO SCH (15:00)
== END 2018-05-04 12:48 | disposition home or self-care (01) | DRG 309 ==
LOC: INTOOBSV 16:43 → N.CC 16:43 → N.TELES 05-01 20:10
PROVIDERS: ADMIT Internal Medicine Cardiovascular Disease; ATTEND Internal Medicine Cardiovascular Disease

== ENCOUNTER 2018-05-04 17:36 | Inpatient (IN) ==
[2018-05-04 20:15] LABS: Calcium 8.5 MG/DL (8.5-10.1); Osmolality,Calculated 274.7 MOS/KG (273-304); Potassium 3.6 MMOL/L (3.5-5.1)
[2018-05-05 03:24] LABS: Basophils % 0.4 % (0.0-0.8); Eosinophils # 0.1 10*3/uL (0.0-0.87); Eosinophils % 2.1 % (0.00-10.9); Hematocrit 40.8 VOL% (42.0-52.0); Hemoglobin 14.3 GM/DL (14.0-18.0); Immature Granulocytes % 0.4 %; Immature Granulocytes Absolute 0.03 #; Lymphocytes # 2.6 10*3/uL (1.4-4.0); Lymphocytes % 37.9 % (21.2-54.2); Mean Corpuscular Hemoglobin 33 PG (27-34); Mean Corpuscular Volume 93.2 FL (87-102); Mean Platelet Volume 10.3 FL (9.6-12.0); Monocytes # 0.3 10*3/uL (0.11-0.8); Monocytes % 5.1 % (1.7-12.7); Neutrophils # 3.6 10*3/uL (1.4-7.4); Neutrophils % 54.1 % (38.7-73.9); Platelet Count 200 T/CUMM (130-400); Red Blood Count 4.38 MC/CUMM (3.8-5.5); Red Cell Distribution Width 11.9 % (9.3-17.3); White Blood Count 6.7 T/CUMM (4-12)
[2018-05-05 03:54] LABS: Albumin 3.3 G/DL (3.4-5.0); Bilirubin,Total 0.7 MG/DL (0.2-1.0); Calcium 8.5 MG/DL (8.5-10.1); Osmolality,Calculated 280.4 MOS/KG (273-304); Potassium 3.5 MMOL/L (3.5-5.1); Total Protein 6.8 G/DL (6.4-8.3)
[2018-05-05 18:29] LABS: Troponin I Only 0.016 NG/ML (0.00-0.045)
[2018-05-06 05:47] LABS: Basophils % 0.7 % (0.0-0.8); Eosinophils # 0.1 10*3/uL (0.0-0.87); Eosinophils % 2.2 % (0.00-10.9); Hematocrit 42.2 VOL% (42.0-52.0); Hemoglobin 14.7 GM/DL (14.0-18.0); Immature Granulocytes % 0.5 %; Immature Granulocytes Absolute 0.03 #; Lymphocytes # 2.2 10*3/uL (1.4-4.0); Lymphocytes % 36.5 % (21.2-54.2); Mean Corpuscular HGB Conc 34.8 GM/DL (32-36); Mean Corpuscular Hemoglobin 32 PG (27-34); Mean Corpuscular Volume 92.3 FL (87-102); Mean Platelet Volume 10.2 FL (9.6-12.0); Monocytes # 0.4 10*3/uL (0.11-0.8); Monocytes % 6.1 % (1.7-12.7); Neutrophils # 3.2 10*3/uL (1.4-7.4); Platelet Count 203 T/CUMM (130-400); Red Blood Count 4.57 MC/CUMM (3.8-5.5); Red Cell Distribution Width 11.9 % (9.3-17.3); White Blood Count 5.9 T/CUMM (4-12)
[2018-05-06 06:16] LABS: Osmolality,Calculated 280.4 MOS/KG (273-304); Potassium 3.8 MMOL/L (3.5-5.1)
[2018-05-07 05:55] LABS: Basophils % 0.4 % (0.0-0.8); Eosinophils # 0.2 10*3/uL (0.0-0.87); Eosinophils % 2.4 % (0.00-10.9); Hematocrit 44.1 VOL% (42.0-52.0); Immature Granulocytes % 0.4 %; Immature Granulocytes Absolute 0.03 #; Lymphocytes # 2.1 10*3/uL (1.4-4.0); Lymphocytes % 30.2 % (21.2-54.2); Mean Corpuscular Hemoglobin 32 PG (27-34); Mean Corpuscular Volume 94.4 FL (87-102); Mean Platelet Volume 10.2 FL (9.6-12.0); Monocytes # 0.4 10*3/uL (0.11-0.8); Monocytes % 6.2 % (1.7-12.7); Neutrophils # 4.1 10*3/uL (1.4-7.4); Neutrophils % 60.4 % (38.7-73.9); Platelet Count 207 T/CUMM (130-400); Red Blood Count 4.67 MC/CUMM (3.8-5.5); Red Cell Distribution Width 11.9 % (9.3-17.3); White Blood Count 6.8 T/CUMM (4-12)
[2018-05-07 06:09] LABS: Osmolality,Calculated 280.4 MOS/KG (273-304); Potassium 3.8 MMOL/L (3.5-5.1)
[2018-05-07 08:13] VITALS: BP 133/89
== END 2018-05-07 11:45 | disposition home or self-care (01) | DRG 309 ==
LOC: N.ICU 18:24 → N.TELEN 05-05 17:31
PROVIDERS: ADMIT Internal Medicine Cardiovascular Disease; ATTEND Internal Medicine Cardiovascular Disease

== ENCOUNTER 2018-06-19 10:00 | Inpatient (IN) ==
[2018-06-19] MEDS ORDERED: GLUCAGON 1 MG VIAL IM PRN (10:07)
[2018-06-19] MEDS ORDERED: ACETAMINOPHEN 325 MG TABLET PO PRN (10:07)
[2018-06-19] MEDS ORDERED: DEXTROSE 50% 25 GM/50 ML VIAL IV PRN (10:07)
[2018-06-19] MEDS ORDERED: MAGNESIUM SULF RIDER 2 GM in PREMIX 1 EACH IV PRN (10:07)
[2018-06-19] MEDS ORDERED: ZALEPLON 5 MG CAPSULE PO PRN (10:07)
[2018-06-19] MEDS ORDERED: MAGNESIUM SULF RIDER 4 GM in PREMIX 1 EACH IV PRN (10:07)
[2018-06-19] MEDS ORDERED: AMIODARONE 450 MG/9 ML VIAL IV ONE (10:55)
[2018-06-19] MEDS ORDERED: AMIODARONE INJ 450 MG in DEXTROSE 5% 241 ML IV SCH (11:00)
[2018-06-19] MEDS: LIDOCAINE DRIP 2,000 MG/250 ML PREMIX IV SCH (11:16)
[2018-06-19 12:03] LABS: Basophils % 0.4 % (0.0-0.8); Eosinophils # 0.1 10*3/uL (0.0-0.87); Eosinophils % 1.8 % (0.00-10.9); Hematocrit 42.7 VOL% (42.0-52.0); Hemoglobin 14.9 GM/DL (14.0-18.0); Immature Granulocytes % 0.4 %; Immature Granulocytes Absolute 0.02 #; Lymphocytes # 1.2 10*3/uL (1.4-4.0); Lymphocytes % 25.3 % (21.2-54.2); Mean Corpuscular HGB Conc 34.9 GM/DL (32-36); Mean Corpuscular Hemoglobin 32 PG (27-34); Mean Corpuscular Volume 90.9 FL (87-102); Mean Platelet Volume 10.1 FL (9.6-12.0); Monocytes # 0.3 10*3/uL (0.11-0.8); Monocytes % 5.3 % (1.7-12.7); Neutrophils # 3.3 10*3/uL (1.4-7.4); Neutrophils % 66.8 % (38.7-73.9); Platelet Count 189 T/CUMM (130-400); Red Cell Distribution Width 11.6 % (9.3-17.3); White Blood Count 4.9 T/CUMM (4-12)
[2018-06-19 12:30] LABS: Troponin I 0.067 NG/ML (0.00-0.045)
[2018-06-19 12:36] LABS: Albumin 3.6 G/DL (3.4-5.0); Bilirubin,Total 0.7 MG/DL (0.2-1.0); Calcium 9.1 MG/DL (8.5-10.1); Osmolality,Calculated 280.4 MOS/KG (273-304); Potassium 3.6 MMOL/L (3.5-5.1); Thyroid Stimulating Hormone 2.33 uIU/ml (0.358-3.74); Total Protein 7.3 G/DL (6.4-8.3)
[2018-06-19 13:48] LABS: Apearance,Urine CLEAR (Clear); Bilirubin,Urine Negative (Negative); Blood, Urine Negative (Negative); Glucose,Urine (UA) Negative (Negative); Hyaline Casts,Urine 1 /LPF (0-3); Ketones,Urine Negative (Negative); Mucus,Urine Occasional /LPF (Occasional); Nitrite,Urine Negative (Negative); Protein,Urine Negative; Urine Color Straw (Yellow); Urine Specific Gravity 1.003 (1.001-1.035); Urine Urobilinogen < 2.0 EU/DL (0.2-1.0); WBC,Urine <1 /HPF (0-6)
[2018-06-19] MEDS: FUROSEMIDE 40 MG/4 ML VIAL IV SCH (16:22)
[2018-06-19] MEDS: AMIODARONE INJ 450 MG in DEXTROSE 5% 241 ML IV SCH (19:13)
[2018-06-19] MEDS ORDERED: NITROGLYCERIN SL 0.4 MG TABLET SL PRN (20:13)
[2018-06-19] MEDS ORDERED: NITROGLYCERIN SL 0.4 MG TABLET SL ONE (20:15)
[2018-06-19] MEDS: CARVEDILOL 6.25 MG TABLET PO SCH (20:27)
[2018-06-19] MEDS: CLORAZEPATE 7.5 MG TABLET PO PRN (20:28)
[2018-06-19] MEDS: MONTELUKAST 10 MG TABLET PO SCH (20:28)
[2018-06-19] MEDS: POTASSIUM CHLORIDE 20 MEQ TABLET PO SCH (20:28)
[2018-06-20] MEDS: DOCUSATE SODIUM 100 MG CAPSULE PO PRN (08:23)
[2018-06-20] MEDS: POTASSIUM CHLORIDE 20 MEQ TABLET PO SCH ×3 (08:23→20:25)
[2018-06-20] MEDS: MULTIVITAMIN (CENTRUM) TABLET PO SCH (08:23)
[2018-06-20] MEDS: FUROSEMIDE 40 MG/4 ML VIAL IV SCH (08:24)
[2018-06-20] MEDS: CARVEDILOL 6.25 MG TABLET PO SCH (08:24)
[2018-06-20] MEDS: ATORVASTATIN 20 MG TABLET PO SCH (08:24)
[2018-06-20] MEDS: ASPIRIN EC 81 MG TABLET PO SCH (08:24)
[2018-06-20] MEDS: LOSARTAN 25 MG TABLET PO SCH (08:24)
[2018-06-20] MEDS: LACTOBACILLUS ACIDOPHILUS/BULGARICUS CAPLET PO SCH (08:24)
[2018-06-20] MEDS: PANTOPRAZOLE 40 MG TABLET PO SCH (08:29)
[2018-06-20] MEDS: CLORAZEPATE 7.5 MG TABLET PO PRN (09:45)
[2018-06-20] MEDS: AMIODARONE INJ 450 MG in DEXTROSE 5% 241 ML IV SCH (10:15)
[2018-06-20] MEDS ORDERED: POLYETHYLENE GLYCOL POWDER 17 GM PACK PO PRN (11:02)
[2018-06-20 11:17] LABS: Calcium 9.6 MG/DL (8.5-10.1); Osmolality,Calculated 273.8 MOS/KG (273-304); Potassium 4.1 MMOL/L (3.5-5.1)
[2018-06-20] MEDS: ENOXAPARIN 40 MG/0.4 ML SYRINGE SUBCUT SCH (12:21)
[2018-06-20] MEDS: LIDOCAINE DRIP 2,000 MG/250 ML PREMIX IV SCH (19:03)
[2018-06-20] MEDS: MONTELUKAST 10 MG TABLET PO SCH (20:25)
[2018-06-20] MEDS: CARVEDILOL 12.5 MG TABLET PO SCH (20:25)
[2018-06-21] MEDS: AMIODARONE INJ 450 MG in DEXTROSE 5% 241 ML IV SCH ×2 (01:24→16:31)
[2018-06-21 04:04] LABS: Calcium 8.8 MG/DL (8.5-10.1); Osmolality,Calculated 276.7 MOS/KG (273-304); Potassium 3.7 MMOL/L (3.5-5.1)
[2018-06-21] MEDS: LACTOBACILLUS ACIDOPHILUS/BULGARICUS CAPLET PO SCH (08:05)
[2018-06-21] MEDS: FUROSEMIDE 40 MG TABLET PO SCH (08:05)
[2018-06-21] MEDS: POTASSIUM CHLORIDE 20 MEQ TABLET PO SCH ×3 (08:05→21:07)
[2018-06-21] MEDS: PANTOPRAZOLE 40 MG TABLET PO SCH (08:05)
[2018-06-21] MEDS: ASPIRIN EC 81 MG TABLET PO SCH (08:06)
[2018-06-21] MEDS: CLORAZEPATE 7.5 MG TABLET PO PRN ×2 (08:06→21:09)
[2018-06-21] MEDS: DOCUSATE SODIUM 100 MG CAPSULE PO PRN (08:06)
[2018-06-21] MEDS: CARVEDILOL 12.5 MG TABLET PO SCH ×2 (08:06→21:07)
[2018-06-21] MEDS: MULTIVITAMIN (CENTRUM) TABLET PO SCH (08:06)
[2018-06-21] MEDS: LOSARTAN 25 MG TABLET PO SCH (08:06)
[2018-06-21] MEDS: ATORVASTATIN 20 MG TABLET PO SCH (08:06)
[2018-06-21] MEDS: LIDOCAINE DRIP 2,000 MG/250 ML PREMIX IV SCH (12:55)
[2018-06-21] MEDS: ENOXAPARIN 40 MG/0.4 ML SYRINGE SUBCUT SCH (13:31)
[2018-06-21] MEDS: MONTELUKAST 10 MG TABLET PO SCH (21:07)
[2018-06-22 04:07] LABS: Basophils % 0.4 % (0.0-0.8); Eosinophils # 0.1 10*3/uL (0.0-0.87); Eosinophils % 1.5 % (0.00-10.9); Hematocrit 43.8 VOL% (42.0-52.0); Hemoglobin 14.8 GM/DL (14.0-18.0); Immature Granulocytes % 0.4 %; Immature Granulocytes Absolute 0.03 #; Lymphocytes # 2.3 10*3/uL (1.4-4.0); Lymphocytes % 31.8 % (21.2-54.2); Mean Corpuscular HGB Conc 33.8 GM/DL (32-36); Mean Corpuscular Hemoglobin 32 PG (27-34); Mean Platelet Volume 10.4 FL (9.6-12.0); Monocytes # 0.4 10*3/uL (0.11-0.8); Monocytes % 5.2 % (1.7-12.7); Neutrophils # 4.4 10*3/uL (1.4-7.4); Neutrophils % 60.7 % (38.7-73.9); Platelet Count 194 T/CUMM (130-400); Red Blood Count 4.66 MC/CUMM (3.8-5.5); Red Cell Distribution Width 11.6 % (9.3-17.3); White Blood Count 7.2 T/CUMM (4-12)
[2018-06-22 04:48] LABS: Calcium 8.7 MG/DL (8.5-10.1); Osmolality,Calculated 279.5 MOS/KG (273-304); Potassium 3.8 MMOL/L (3.5-5.1)
[2018-06-22] MEDS ORDERED: HEPARIN/NACL 0.9% 2 UNITS/ML 1,500 ML IV ONE ×2 (07:57→08:14)
[2018-06-22] MEDS ORDERED: LIDOCAINE 1% 20 ML VIAL ONE (08:14)
[2018-06-22 08:31] LABS: Apearance,Urine CLEAR (Clear); Bilirubin,Urine Negative (Negative); Blood, Urine Negative (Negative); Glucose,Urine (UA) Negative (Negative); Ketones,Urine Negative (Negative); Mucus,Urine Many /LPF (Occasional); Nitrite,Urine Negative (Negative); Protein,Urine Negative; RBC,Urine 1 /HPF (0-4); Urine Color Yellow (Yellow); Urine Specific Gravity 1.024 (1.001-1.035); WBC,Urine 2 /HPF (0-6)
[2018-06-22] MEDS ORDERED: ceFAZolin 1,000 MG VIAL ONE (09:03)
[2018-06-22] MEDS ORDERED: HEPARIN DRIP 25,000 UNITS/500 ML PREMIX IV ONE (09:22)
[2018-06-22] MEDS ORDERED: ISOPROTERENOL 1 MG/5 ML VIAL IV ONE (09:28)
[2018-06-22] MEDS ORDERED: HEPARIN 5,000 UNIT/1 ML VIAL ONE (10:18)
[2018-06-22] MEDS ORDERED: HEPARIN/NACL 0.9% 2 UNITS/ML 500 ML IV ONE ×3 (12:06→13:54)
[2018-06-22] MEDS ORDERED: FUROSEMIDE 40 MG/4 ML VIAL ONE (14:15)
[2018-06-22] MEDS ORDERED: ACETAMINOPHEN 325 MG TABLET PO PRN (14:38)
[2018-06-22] MEDS ORDERED: MORPHINE 4 MG/1 ML VIAL IV PRN (14:38)
[2018-06-22] MEDS ORDERED: ONDANSETRON 4 MG/2 ML VIAL IV PRN (14:38)
[2018-06-22] MEDS ORDERED: DEXTROSE 50% 25 GM/50 ML VIAL IV PRN (14:38)
[2018-06-22] MEDS ORDERED: oxyCODONE/ACETAMINOPHEN 5-325 MG TABLET PO PRN (14:38)
[2018-06-22] MEDS ORDERED: GLUCAGON 1 MG VIAL IM PRN (14:38)
[2018-06-22] MEDS ORDERED: PROPOFOL 200 MG/20 ML VIAL IV ONE (14:58)
[2018-06-22] MEDS ORDERED: fentaNYL 100 MCG/2 ML VIAL ONE (14:58)
[2018-06-22] MEDS ORDERED: HEPARIN 10,000 UNIT/10 ML VIAL ONE (14:58)
[2018-06-22] MEDS ORDERED: ONDANSETRON 4 MG/2 ML VIAL ONE (14:58)
[2018-06-22] MEDS ORDERED: SEVOFLURANE 1 UNIT/15 MINUTE INH ONE (14:58)
[2018-06-22] MEDS ORDERED: ROCURONIUM 100 MG/10 ML VIAL IV ONE (14:59)
[2018-06-22] MEDS ORDERED: LACTATED RINGERS 1,000 ML IV ONE (14:59)
[2018-06-22] MEDS ORDERED: PROTAMINE SULFATE 50 MG/5 ML VIAL IV ONE (14:59)
[2018-06-22] MEDS ORDERED: PHENYLEPHRINE 1 MG/10 ML SYRINGE IV ONE (14:59)
[2018-06-22] MEDS ORDERED: PHENYLEPHRINE 10 MG/1 ML VIAL IV ONE (14:59)
[2018-06-22] MEDS ORDERED: ETOMIDATE 40 MG/20 ML VIAL IV ONE (14:59)
[2018-06-22] MEDS ORDERED: FUROSEMIDE 20 MG/2 ML VIAL ONE (14:59)
[2018-06-22] MEDS: POTASSIUM CHLORIDE 20 MEQ TABLET PO SCH ×2 (16:04→21:23)
[2018-06-22] MEDS: ATORVASTATIN 20 MG TABLET PO SCH (16:04)
[2018-06-22] MEDS: FUROSEMIDE 40 MG TABLET PO SCH (16:04)
[2018-06-22] MEDS: PANTOPRAZOLE 40 MG TABLET PO SCH (16:04)
[2018-06-22] MEDS: ASPIRIN EC 81 MG TABLET PO SCH (16:05)
[2018-06-22] MEDS: CARVEDILOL 12.5 MG TABLET PO SCH ×2 (16:05→21:24)
[2018-06-22] MEDS: LACTOBACILLUS ACIDOPHILUS/BULGARICUS CAPLET PO SCH (16:05)
[2018-06-22] MEDS: MULTIVITAMIN (CENTRUM) TABLET PO SCH (16:05)
[2018-06-22] MEDS: LOSARTAN 25 MG TABLET PO SCH (16:05)
[2018-06-22] MEDS ORDERED: diphenhydrAMINE CAP 25 MG CAPSULE PO PRN (17:33)
[2018-06-22] MEDS ORDERED: MAGNESIUM HYDROXIDE SUSP 30 ML UDCUP PO PRN (17:33)
[2018-06-22] MEDS: ENOXAPARIN 40 MG/0.4 ML SYRINGE SUBCUT SCH (20:07)
[2018-06-22] MEDS: ENOXAPARIN 120 MG/0.8 ML SYRINGE SUBCUT SCH (21:22)
[2018-06-22] MEDS: AMIODARONE 200 MG TABLET PO SCH (21:23)
[2018-06-22] MEDS: CLORAZEPATE 7.5 MG TABLET PO PRN (21:24)
[2018-06-22] MEDS: MONTELUKAST 10 MG TABLET PO SCH (21:25)
[2018-06-22] MEDS ORDERED: SODIUM CHLORIDE 0.9% 500 ML IV ONE (23:06)
[2018-06-23] MEDS ORDERED: DOPamine 800 MG/250 ML PREMIX IV PRN (00:40)
[2018-06-23] MEDS ORDERED: DOPamine 800 MG/250 ML PREMIX IV ONE (00:41)
[2018-06-23] MEDS ORDERED: NOREPINEPHRINE 8 MG in SODIUM CHLORIDE 0.9% 242 ML IV PRN (00:49)
[2018-06-23 05:39] LABS: Basophils % 0.5 % (0.0-0.8); Eosinophils # 0.1 10*3/uL (0.0-0.87); Eosinophils % 1.5 % (0.00-10.9); Hematocrit 37.8 VOL% (42.0-52.0); Hemoglobin 13.3 GM/DL (14.0-18.0); Immature Granulocytes % 0.5 %; Immature Granulocytes Absolute 0.04 #; Lymphocytes # 2.6 10*3/uL (1.4-4.0); Mean Corpuscular HGB Conc 35.2 GM/DL (32-36); Mean Corpuscular Hemoglobin 32 PG (27-34); Mean Corpuscular Volume 91.5 FL (87-102); Mean Platelet Volume 10.2 FL (9.6-12.0); Monocytes # 0.4 10*3/uL (0.11-0.8); Monocytes % 5.5 % (1.7-12.7); Neutrophils # 4.7 10*3/uL (1.4-7.4); Platelet Count 175 T/CUMM (130-400); Red Blood Count 4.13 MC/CUMM (3.8-5.5); Red Cell Distribution Width 11.8 % (9.3-17.3)
[2018-06-23 06:00] LABS: Calcium 8.1 MG/DL (8.5-10.1); Osmolality,Calculated 278.4 MOS/KG (273-304); Potassium 3.6 MMOL/L (3.5-5.1)
[2018-06-23] MEDS: ATORVASTATIN 20 MG TABLET PO SCH (08:25)
[2018-06-23] MEDS: PANTOPRAZOLE 40 MG TABLET PO SCH (08:25)
[2018-06-23] MEDS: AMIODARONE 200 MG TABLET PO SCH ×2 (08:25→20:00)
[2018-06-23] MEDS: MULTIVITAMIN (CENTRUM) TABLET PO SCH (08:25)
[2018-06-23] MEDS: POTASSIUM CHLORIDE 20 MEQ TABLET PO SCH ×3 (08:25→20:00)
[2018-06-23] MEDS: CLORAZEPATE 7.5 MG TABLET PO PRN (08:25)
[2018-06-23] MEDS: ASPIRIN EC 81 MG TABLET PO SCH (08:25)
[2018-06-23] MEDS: LACTOBACILLUS ACIDOPHILUS/BULGARICUS CAPLET PO SCH (08:25)
[2018-06-23] MEDS: ENOXAPARIN 120 MG/0.8 ML SYRINGE SUBCUT SCH ×2 (08:26→20:01)
[2018-06-23] MEDS: CARVEDILOL 12.5 MG TABLET PO SCH (10:00)
[2018-06-23] MEDS: FUROSEMIDE 40 MG TABLET PO SCH (10:01)
[2018-06-23] MEDS: MONTELUKAST 10 MG TABLET PO SCH ×2 (20:00→20:02)
[2018-06-23 21:53] LABS: Basophils % 0.5 % (0.0-0.8); Eosinophils # 0.1 10*3/uL (0.0-0.87); Eosinophils % 2.2 % (0.00-10.9); Hematocrit 33.7 VOL% (42.0-52.0); Hemoglobin 11.5 GM/DL (14.0-18.0); Immature Granulocytes % 0.5 %; Immature Granulocytes Absolute 0.03 #; Lymphocytes # 2.3 10*3/uL (1.4-4.0); Lymphocytes % 39.2 % (21.2-54.2); Mean Corpuscular HGB Conc 34.1 GM/DL (32-36); Mean Corpuscular Hemoglobin 32 PG (27-34); Mean Corpuscular Volume 92.8 FL (87-102); Mean Platelet Volume 9.8 FL (9.6-12.0); Monocytes # 0.4 10*3/uL (0.11-0.8); Monocytes % 6.4 % (1.7-12.7); Neutrophils % 51.2 % (38.7-73.9); Platelet Count 134 T/CUMM (130-400); Red Blood Count 3.63 MC/CUMM (3.8-5.5); Red Cell Distribution Width 11.8 % (9.3-17.3); White Blood Count 5.8 T/CUMM (4-12)
[2018-06-23 22:17] LABS: Calcium 7.9 MG/DL (8.5-10.1); Osmolality,Calculated 281.3 MOS/KG (273-304); Potassium 3.8 MMOL/L (3.5-5.1)
[2018-06-24 05:17] LABS: Basophils % 0.6 % (0.0-0.8); Eosinophils # 0.1 10*3/uL (0.0-0.87); Eosinophils % 2.2 % (0.00-10.9); Hematocrit 33.5 VOL% (42.0-52.0); Hemoglobin 11.2 GM/DL (14.0-18.0); Immature Granulocytes % 0.4 %; Immature Granulocytes Absolute 0.02 #; Lymphocytes # 1.8 10*3/uL (1.4-4.0); Lymphocytes % 32.7 % (21.2-54.2); Mean Corpuscular HGB Conc 33.4 GM/DL (32-36); Mean Corpuscular Hemoglobin 32 PG (27-34); Mean Corpuscular Volume 95.4 FL (87-102); Mean Platelet Volume 10.3 FL (9.6-12.0); Monocytes # 0.3 10*3/uL (0.11-0.8); Monocytes % 5.9 % (1.7-12.7); Neutrophils # 3.2 10*3/uL (1.4-7.4); Neutrophils % 58.2 % (38.7-73.9); Platelet Count 137 T/CUMM (130-400); Red Blood Count 3.51 MC/CUMM (3.8-5.5); Red Cell Distribution Width 11.9 % (9.3-17.3); White Blood Count 5.4 T/CUMM (4-12)
[2018-06-24 05:42] LABS: Calcium 8.2 MG/DL (8.5-10.1); Osmolality,Calculated 282.1 MOS/KG (273-304)
[2018-06-24] MEDS: ATORVASTATIN 20 MG TABLET PO SCH (08:09)
[2018-06-24] MEDS: AMIODARONE 200 MG TABLET PO SCH ×2 (08:09→20:03)
[2018-06-24] MEDS: PANTOPRAZOLE 40 MG TABLET PO SCH (08:09)
[2018-06-24] MEDS: LACTOBACILLUS ACIDOPHILUS/BULGARICUS CAPLET PO SCH (08:09)
[2018-06-24] MEDS: ASPIRIN EC 81 MG TABLET PO SCH (08:09)
[2018-06-24] MEDS: APIXABAN 5 MG TABLET PO SCH ×2 (08:09→20:03)
[2018-06-24] MEDS: POTASSIUM CHLORIDE 20 MEQ TABLET PO SCH ×3 (08:09→20:03)
[2018-06-24] MEDS: MULTIVITAMIN (CENTRUM) TABLET PO SCH (08:09)
[2018-06-24] MEDS: MONTELUKAST 10 MG TABLET PO SCH (20:03)
[2018-06-24] MEDS: CARVEDILOL 12.5 MG TABLET PO SCH (20:03)
[2018-06-25 04:43] LABS: Calcium 8.4 MG/DL (8.5-10.1); Osmolality,Calculated 281.1 MOS/KG (273-304); Potassium 3.8 MMOL/L (3.5-5.1)
[2018-06-25 04:48] LABS: Basophils % 0.6 % (0.0-0.8); Eosinophils # 0.2 10*3/uL (0.0-0.87); Eosinophils % 3.1 % (0.00-10.9); Hematocrit 35.7 VOL% (42.0-52.0); Hemoglobin 11.9 GM/DL (14.0-18.0); Immature Granulocytes Absolute 0.05 #; Lymphocytes # 1.7 10*3/uL (1.4-4.0); Lymphocytes % 35.6 % (21.2-54.2); Mean Corpuscular HGB Conc 33.3 GM/DL (32-36); Mean Corpuscular Hemoglobin 32 PG (27-34); Mean Platelet Volume 11.1 FL (9.6-12.0); Monocytes # 0.3 10*3/uL (0.11-0.8); Monocytes % 5.1 % (1.7-12.7); Neutrophils # 2.7 10*3/uL (1.4-7.4); Neutrophils % 54.6 % (38.7-73.9); Platelet Count 144 T/CUMM (130-400); Red Blood Count 3.72 MC/CUMM (3.8-5.5); Red Cell Distribution Width 11.7 % (9.3-17.3); White Blood Count 4.9 T/CUMM (4-12)
[2018-06-25 05:06] LABS: Hypochromasia 1+
[2018-06-25 05:07] LABS: Platelet Estimate Normal
[2018-06-25] MEDS: LACTOBACILLUS ACIDOPHILUS/BULGARICUS CAPLET PO SCH (08:20)
[2018-06-25] MEDS: APIXABAN 5 MG TABLET PO SCH ×2 (08:20→21:01)
[2018-06-25] MEDS: MULTIVITAMIN (CENTRUM) TABLET PO SCH (08:20)
[2018-06-25] MEDS: ATORVASTATIN 20 MG TABLET PO SCH (08:20)
[2018-06-25] MEDS: PANTOPRAZOLE 40 MG TABLET PO SCH (08:20)
[2018-06-25] MEDS: ASPIRIN EC 81 MG TABLET PO SCH (08:21)
[2018-06-25] MEDS: CARVEDILOL 12.5 MG TABLET PO SCH ×2 (08:21→21:01)
[2018-06-25] MEDS: POTASSIUM CHLORIDE 20 MEQ TABLET PO SCH ×3 (08:21→21:01)
[2018-06-25] MEDS: AMIODARONE 200 MG TABLET PO SCH ×2 (08:21→21:01)
[2018-06-25] MEDS: MONTELUKAST 10 MG TABLET PO SCH (21:02)
[2018-06-26 05:40] LABS: Basophils % 0.5 % (0.0-0.8); Eosinophils # 0.1 10*3/uL (0.0-0.87); Eosinophils % 2.6 % (0.00-10.9); Hematocrit 35.9 VOL% (42.0-52.0); Hemoglobin 12.4 GM/DL (14.0-18.0); Immature Granulocytes % 0.4 %; Immature Granulocytes Absolute 0.02 #; Lymphocytes # 1.5 10*3/uL (1.4-4.0); Lymphocytes % 27.6 % (21.2-54.2); Mean Corpuscular HGB Conc 34.5 GM/DL (32-36); Mean Corpuscular Hemoglobin 32 PG (27-34); Mean Corpuscular Volume 91.8 FL (87-102); Monocytes # 0.3 10*3/uL (0.11-0.8); Monocytes % 5.3 % (1.7-12.7); Neutrophils # 3.5 10*3/uL (1.4-7.4); Neutrophils % 63.6 % (38.7-73.9); Platelet Count 174 T/CUMM (130-400); Red Blood Count 3.91 MC/CUMM (3.8-5.5); Red Cell Distribution Width 11.9 % (9.3-17.3); White Blood Count 5.5 T/CUMM (4-12)
[2018-06-26 06:01] LABS: Calcium 8.7 MG/DL (8.5-10.1)
[2018-06-26 08:05] VITALS: BP 111/65
[2018-06-26] MEDS: PANTOPRAZOLE 40 MG TABLET PO SCH (08:14)
[2018-06-26] MEDS: LACTOBACILLUS ACIDOPHILUS/BULGARICUS CAPLET PO SCH (08:14)
[2018-06-26] MEDS: CARVEDILOL 12.5 MG TABLET PO SCH (08:15)
[2018-06-26] MEDS: ASPIRIN EC 81 MG TABLET PO SCH (08:15)
[2018-06-26] MEDS: ATORVASTATIN 20 MG TABLET PO SCH (08:15)
[2018-06-26] MEDS: FUROSEMIDE 40 MG TABLET PO SCH (08:15)
[2018-06-26] MEDS: APIXABAN 5 MG TABLET PO SCH (08:15)
[2018-06-26] MEDS: MULTIVITAMIN (CENTRUM) TABLET PO SCH (08:15)
[2018-06-26] MEDS: AMIODARONE 200 MG TABLET PO SCH (08:16)
[2018-06-26] MEDS: POTASSIUM CHLORIDE 20 MEQ TABLET PO SCH (08:16)
[2018-06-26] MEDS: CLORAZEPATE 7.5 MG TABLET PO PRN (10:37)
== END 2018-06-26 12:04 | disposition home or self-care (01) | DRG 274 ==
LOC: N.CC 10:44 → N.TELEN 06-25 12:03
PROVIDERS: ADMIT Internal Medicine Clinical Cardiac Electrophysiology; ATTEND Internal Medicine Clinical Cardiac Electrophysiology
PROC: CLEPAVT (ICD-10-PCS; 2018-06-22 08:15)

== ENCOUNTER 2018-07-04 16:43 | Inpatient (IN) ==
[2018-07-04] MEDS ORDERED: AMIODARONE INJ 150 MG in DEXTROSE 5% 100 ML IV STA (17:05)
[2018-07-04] MEDS: AMIODARONE INJ 450 MG in DEXTROSE 5% 241 ML IV SCH (17:27)
[2018-07-04] MEDS ORDERED: MAGNESIUM SULF RIDER 2 GM in PREMIX 1 EACH IV PRN (17:33)
[2018-07-04] MEDS ORDERED: MAGNESIUM SULF RIDER 4 GM in PREMIX 1 EACH IV PRN (17:33)
[2018-07-04 17:59] LABS: Basophils % 0.2 % (0.0-0.8); Eosinophils # 0.1 10*3/uL (0.0-0.87); Eosinophils % 0.8 % (0.00-10.9); Hematocrit 41.4 VOL% (42.0-52.0); Hemoglobin 14.1 GM/DL (14.0-18.0); Immature Granulocytes % 0.3 %; Immature Granulocytes Absolute 0.03 #; Lymphocytes # 1.3 10*3/uL (1.4-4.0); Lymphocytes % 15.3 % (21.2-54.2); Mean Corpuscular HGB Conc 34.1 GM/DL (32-36); Mean Corpuscular Hemoglobin 32 PG (27-34); Mean Corpuscular Volume 93.5 FL (87-102); Monocytes # 0.2 10*3/uL (0.11-0.8); Monocytes % 2.8 % (1.7-12.7); Neutrophils # 6.9 10*3/uL (1.4-7.4); Neutrophils % 80.6 % (38.7-73.9); Platelet Count 236 T/CUMM (130-400); Red Blood Count 4.43 MC/CUMM (3.8-5.5); White Blood Count 8.6 T/CUMM (4-12)
[2018-07-04 18:34] LABS: Albumin 3.8 G/DL (3.4-5.0); Bilirubin,Total 0.4 MG/DL (0.2-1.0); Calcium 8.2 MG/DL (8.5-10.1); Osmolality,Calculated 286.1 MOS/KG (273-304); Potassium 3.9 MMOL/L (3.5-5.1); Thyroid Stimulating Hormone 2.3 uIU/ml (0.358-3.74); Total Protein 6.7 G/DL (6.4-8.3)
[2018-07-04] MEDS ORDERED: ZALEPLON 5 MG CAPSULE PO PRN (18:56)
[2018-07-04] MEDS: CLORAZEPATE 7.5 MG TABLET PO PRN (19:03)
[2018-07-04] MEDS: CARVEDILOL 3.125 MG TABLET PO SCH (20:48)
[2018-07-04] MEDS: APIXABAN 5 MG TABLET PO SCH (20:48)
[2018-07-04] MEDS: POTASSIUM CHLORIDE 20 MEQ TABLET PO SCH (20:49)
[2018-07-04] MEDS ORDERED: AMIODARONE 200 MG TABLET PO SCH (21:00)
[2018-07-05] MEDS: AMIODARONE INJ 450 MG in DEXTROSE 5% 241 ML IV SCH ×3 (02:42→17:56)
[2018-07-05] MEDS: PANTOPRAZOLE 40 MG TABLET PO SCH (08:17)
[2018-07-05] MEDS: ATORVASTATIN 20 MG TABLET PO SCH (08:17)
[2018-07-05] MEDS: ASPIRIN EC 81 MG TABLET PO SCH (08:17)
[2018-07-05] MEDS: APIXABAN 5 MG TABLET PO SCH ×2 (08:17→20:13)
[2018-07-05] MEDS: CARVEDILOL 3.125 MG TABLET PO SCH ×2 (08:17→20:13)
[2018-07-05] MEDS: FUROSEMIDE 40 MG TABLET PO SCH (08:17)
[2018-07-05] MEDS: POTASSIUM CHLORIDE 20 MEQ TABLET PO SCH ×3 (08:17→20:13)
[2018-07-05] MEDS: CLORAZEPATE 7.5 MG TABLET PO PRN ×2 (08:19→16:42)
[2018-07-05] MEDS ORDERED: NITROGLYCERIN 2% OINT 1 INCH/GM PACK TOP ONE (12:59)
[2018-07-05] MEDS ORDERED: NITROGLYCERIN 0.2 MG/HR PATCH TRANSDERM PRN (13:01)
[2018-07-05] MEDS ORDERED: fentaNYL 100 MCG/2 ML VIAL IV ONE (13:07)
[2018-07-05] MEDS ORDERED: ALUM/MAG/SIMETH/LIDO VISC 1:1 30 ML BOTTLE PO ONE (13:29)
[2018-07-05] MEDS: NITROGLYCERIN 2% OINT 1 INCH/GM PACK TOP SCH ×2 (13:39→18:01)
[2018-07-05 14:02] LABS: Troponin I 0.564 NG/ML (0.00-0.045)
[2018-07-05 19:37] LABS: Troponin I 0.487 NG/ML (0.00-0.045)
[2018-07-05] MEDS ORDERED: ACETAMINOPHEN 325 MG TABLET PO PRN (19:59)
[2018-07-05] MEDS ORDERED: MONTELUKAST 10 MG TABLET PO SCH (21:00)
[2018-07-06] MEDS: NITROGLYCERIN 2% OINT 1 INCH/GM PACK TOP SCH ×2 (00:03→05:30)
[2018-07-06] MEDS: CLORAZEPATE 7.5 MG TABLET PO PRN ×3 (00:04→17:05)
[2018-07-06 01:38] LABS: Calcium 8.9 MG/DL (8.5-10.1); Osmolality,Calculated 281.3 MOS/KG (273-304)
[2018-07-06 01:54] LABS: Troponin I 0.409 NG/ML (0.00-0.045)
[2018-07-06] MEDS ORDERED: DIAZEPAM 5 MG TABLET PO ONE (07:47)
[2018-07-06] MEDS ORDERED: diphenhydrAMINE CAP 25 MG CAPSULE PO ONE (07:47)
[2018-07-06 07:48] LABS: Troponin I 0.368 NG/ML (0.00-0.045)
[2018-07-06] MEDS: ASPIRIN EC 81 MG TABLET PO SCH (08:35)
[2018-07-06] MEDS ORDERED: HEPARIN/NACL 0.9% 2 UNITS/ML 1,000 ML IV ONE (08:51)
[2018-07-06] MEDS ORDERED: LIDOCAINE 1% 20 ML VIAL ONE (08:51)
[2018-07-06] MEDS ORDERED: NITROGLYCERIN DRIP 50 MG/250 ML BOTTLE IV ONE (08:55)
[2018-07-06] MEDS ORDERED: VERAPAMIL 5 MG/2 ML VIAL ONE (08:55)
[2018-07-06] MEDS ORDERED: MIDAZOLAM 2 MG/2 ML VIAL ONE ×2 (08:57→09:04)
[2018-07-06] MEDS ORDERED: fentaNYL 100 MCG/2 ML VIAL ONE (08:57)
[2018-07-06] MEDS ORDERED: diphenhydrAMINE 50 MG/1 ML VIAL ONE (09:04)
[2018-07-06] MEDS ORDERED: ENOXAPARIN 60 MG/0.6 ML SYRINGE ONE (09:12)
[2018-07-06] MEDS: PANTOPRAZOLE 40 MG TABLET PO SCH (09:48)
[2018-07-06] MEDS: POTASSIUM CHLORIDE 20 MEQ TABLET PO SCH ×2 (09:48→15:40)
[2018-07-06] MEDS: CARVEDILOL 3.125 MG TABLET PO SCH (09:48)
[2018-07-06] MEDS: ATORVASTATIN 20 MG TABLET PO SCH (09:48)
[2018-07-06] MEDS: FUROSEMIDE 40 MG TABLET PO SCH (09:48)
[2018-07-06] MEDS: APIXABAN 5 MG TABLET PO SCH (09:48)
[2018-07-06] MEDS: AMIODARONE INJ 450 MG in DEXTROSE 5% 241 ML IV SCH (09:52)
[2018-07-06 13:38] LABS: Troponin I 0.287 NG/ML (0.00-0.045)
[2018-07-06 14:07] VITALS: BP 104/78
[2018-07-06] MEDS ORDERED: MONTELUKAST 10 MG TABLET PO SCH (21:00)
[2018-07-07] MEDS ORDERED: LACTOBACILLUS RHAMNOSUS GG CAPSULE PO SCH (09:00)
[2018-07-07] MEDS ORDERED: MULTIVITAMIN (CENTRUM) TABLET PO SCH (09:00)
== END 2018-07-06 18:55 | disposition hospice, home (50) | DRG 287 ==
LOC: EDUNIT# → EDBD → N.ED 16:43 → N.EDINP 17:33 → N.CC 17:49
PROVIDERS: ADMIT Internal Medicine Cardiovascular Disease; ATTEND Internal Medicine Cardiovascular Disease
PROC: CLCCHCL (ICD-10-PCS; 2018-07-06 09:15)

== ENCOUNTER 2018-08-23 09:24 | Inpatient (IN) ==
[2018-08-23 10:32] LABS: Basophils # 0.1 10*3/uL (0.0-0.2); Basophils % 0.8 % (0.0-0.8); Eosinophils # 0.1 10*3/uL (0.0-0.87); Eosinophils % 2.1 % (0.00-10.9); Hematocrit 43.7 VOL% (42.0-52.0); Hemoglobin 14.6 GM/DL (14.0-18.0); Immature Granulocytes % 0.6 %; Immature Granulocytes Absolute 0.04 #; Lymphocytes # 1.1 10*3/uL (1.4-4.0); Lymphocytes % 17.2 % (21.2-54.2); Mean Corpuscular HGB Conc 33.4 GM/DL (32-36); Mean Corpuscular Hemoglobin 31 PG (27-34); Mean Platelet Volume 9.8 FL (9.6-12.0); Monocytes # 0.3 10*3/uL (0.11-0.8); Monocytes % 5.1 % (1.7-12.7); Neutrophils # 4.7 10*3/uL (1.4-7.4); Neutrophils % 74.2 % (38.7-73.9); Platelet Count 210 T/CUMM (130-400); Red Cell Distribution Width 12.3 % (9.3-17.3); White Blood Count 6.3 T/CUMM (4-12)
[2018-08-23 10:44] LABS: Alanine Aminotransferase 50 U/L (16-61); Albumin 3.6 G/DL (3.4-5.0); Alkaline Phosphatase 105 U/L (45-117); Aspartate Amino Transferase 27 U/L (0-37); Blood Urea Nitrogen 15 MG/DL (7-18); Calcium 8.8 MG/DL (8.5-10.1); Glucose 122 MG/DL (74-106); INR 0.9; Osmolality,Calculated 278.5 MOS/KG (273-304); Partial Thromboplastin Time 25.9 SECS (0-40); Sodium 139 MMOL/L (136-145); Total Protein 7.1 G/DL (6.4-8.3)
[2018-08-23 10:46] LABS: Troponin I 0.094 NG/ML (0.00-0.045)
[2018-08-23 10:58] LABS: Apearance,Urine CLEAR (Clear); Bilirubin,Urine Negative (Negative); Blood, Urine Negative (Negative); Glucose,Urine (UA) Negative (Negative); Ketones,Urine Negative (Negative); Nitrite,Urine Negative (Negative); Protein,Urine Negative; Urine Color Yellow (Yellow); Urine Specific Gravity 1.009 (1.001-1.035); WBC,Urine 1 /HPF (0-6)
[2018-08-23] MEDS ORDERED: AMIODARONE INJ 450 MG in DEXTROSE 5% 241 ML IV SCH (11:30)
[2018-08-23 11:44] LABS: Barbiturates Screen,Urine Negative (Negative); Benzodiazepines Screen,Urine Positive (Negative); Cannabinoid Screen,Urine Negative (Negative); Opiate Screen,Urine Negative (Negative); Phencyclidine Screen,Urine Negative (Negative)
[2018-08-23] MEDS ORDERED: MAGNESIUM SULF RIDER 2 GM in PREMIX 1 EACH IV PRN (12:11)
[2018-08-23] MEDS ORDERED: MAGNESIUM SULF RIDER 4 GM in PREMIX 1 EACH IV PRN (12:11)
[2018-08-23 12:41] VITALS: BP 110/58
[2018-08-23] MEDS ORDERED: PROPRANOLOL 40 MG TABLET PO SCH (13:00)
[2018-08-23] MEDS ORDERED: LIDOCAINE DRIP 2,000 MG/250 ML PREMIX IV SCH (13:00)
[2018-08-23] MEDS ORDERED: FUROSEMIDE 40 MG TABLET PO SCH (13:30)
[2018-08-23] MEDS ORDERED: CLORAZEPATE 7.5 MG TABLET PO PRN (14:49)
[2018-08-23] MEDS ORDERED: PROPRANOLOL HCL 80 MG PO SCH (21:00)
[2018-08-24] MEDS ORDERED: ASPIRIN EC 81 MG TABLET PO SCH (09:00)
[2018-08-24] MEDS ORDERED: ESCITALOPRAM 10 MG TABLET PO SCH (09:00)
[2018-08-24] MEDS ORDERED: CLORAZEPATE 7.5 MG TABLET PO SCH (09:00)
[2018-08-24] MEDS ORDERED: SPIRONOLACTONE 25 MG TABLET PO SCH (09:00)
[2018-08-24] MEDS ORDERED: ATORVASTATIN 20 MG TABLET PO SCH (09:00)
[2018-08-24] MEDS ORDERED: PANTOPRAZOLE 40 MG TABLET PO SCH (09:00)
[2018-08-24] MEDS ORDERED: POTASSIUM CHLORIDE 20 MEQ TABLET PO SCH (09:00)
== END 2018-08-23 16:10 | disposition hospice, home (50) | DRG 309 ==
LOC: EDUNIT# → EDBD → N.ED 09:24 → N.EDINP 11:20 → N.CC 12:09
PROVIDERS: ADMIT Internal Medicine Clinical Cardiac Electrophysiology; ATTEND Internal Medicine Clinical Cardiac Electrophysiology

== ENCOUNTER 2020-04-06 14:21 | Observation (INO) ==
[2020-04-06 15:25] LABS: Albumin 3.7 G/DL (3.4-5.0); Bilirubin,Total 0.6 MG/DL (0.2-1.0); Calcium 8.8 MG/DL (8.5-10.1); Total Protein 7.1 G/DL (6.4-8.3)
[2020-04-06 15:43] LABS: Basophils % 0.3 % (0.0-0.8); Eosinophils # 0.1 10*3/uL (0.0-0.87); Eosinophils % 1.3 % (0.00-10.9); Hematocrit 42.3 VOL% (42.0-52.0); Hemoglobin 14.2 GM/DL (14.0-18.0); Immature Granulocytes % 0.3 %; Immature Granulocytes Absolute 0.02 #; Lymphocytes # 1.8 10*3/uL (1.4-4.0); Lymphocytes % 30.9 % (21.2-54.2); Mean Corpuscular HGB Conc 33.6 GM/DL (32-36); Mean Corpuscular Volume 87.8 FL (87-102); Mean Platelet Volume 9.6 FL (9.6-12.0); Monocytes % 7.1 % (1.7-12.7); Neutrophils % 60.1 % (38.7-73.9); Platelet Count 194 T/CUMM (130-400); Red Blood Count 4.82 MC/CUMM (3.8-5.5); Red Cell Distribution Width 13.2 % (9.3-17.3); White Blood Count 5.9 T/CUMM (4-12)
[2020-04-06] MEDS ORDERED: ACETAMINOPHEN 325 MG TABLET PO PRN (17:12)
[2020-04-06] MEDS: TACROLIMUS 0.5 MG CAPSULE PO SCH (20:47)
[2020-04-06] MEDS: PROPRANOLOL 40 MG TABLET PO SCH (20:50)
[2020-04-06] MEDS ORDERED: FERROUS SULFATE 325 MG TABLET PO SCH (21:00)
[2020-04-06] MEDS ORDERED: ATORVASTATIN 20 MG TABLET PO SCH (21:00)
[2020-04-07 03:59] LABS: Basophils % 0.4 % (0.0-0.8); Eosinophils # 0.1 10*3/uL (0.0-0.87); Eosinophils % 2.4 % (0.00-10.9); Hematocrit 43.3 VOL% (42.0-52.0); Hemoglobin 14.3 GM/DL (14.0-18.0); Immature Granulocytes % 0.2 %; Immature Granulocytes Absolute 0.01 #; Lymphocytes % 39.4 % (21.2-54.2); Mean Corpuscular Volume 88.2 FL (87-102); Mean Platelet Volume 9.8 FL (9.6-12.0); Monocytes % 7.6 % (1.7-12.7); Platelet Count 177 T/CUMM (130-400); Red Blood Count 4.91 MC/CUMM (3.8-5.5); Red Cell Distribution Width 13.2 % (9.3-17.3)
[2020-04-07 04:42] LABS: Albumin 3.3 G/DL (3.4-5.0); Bilirubin,Total 0.5 MG/DL (0.2-1.0); Calcium 8.8 MG/DL (8.5-10.1); Osmolality,Calculated 276.5 MOS/KG (273-304); Total Protein 6.9 G/DL (6.4-8.3)
[2020-04-07] MEDS ORDERED: CLORAZEPATE 7.5 MG TABLET PO SCH (09:00)
[2020-04-07] MEDS ORDERED: POTASSIUM CHLORIDE 20 MEQ TABLET PO SCH (09:00)
[2020-04-07] MEDS ORDERED: AMIODARONE 200 MG TABLET PO SCH (09:00)
[2020-04-07] MEDS ORDERED: PANTOPRAZOLE 40 MG TABLET PO SCH (09:00)
[2020-04-07] MEDS ORDERED: ESCITALOPRAM 10 MG TABLET PO SCH (09:00)
[2020-04-07] MEDS ORDERED: LOSARTAN 25 MG TABLET PO SCH (09:00)
[2020-04-07] MEDS ORDERED: SPIRONOLACTONE 25 MG TABLET PO SCH (09:00)
[2020-04-07] MEDS ORDERED: FUROSEMIDE 40 MG TABLET PO SCH (09:00)
[2020-04-07] MEDS ORDERED: LOSARTAN 50 MG TABLET PO SCH (09:00)
[2020-04-07] MEDS ORDERED: ASPIRIN EC 81 MG TABLET PO SCH (09:00)
[2020-04-07] MEDS: TACROLIMUS 0.5 MG CAPSULE PO SCH ×2 (09:56→09:58)
[2020-04-07] MEDS: PROPRANOLOL 40 MG TABLET PO SCH (09:56)
[2020-04-07 12:34] VITALS: BP 156/73
[2020-04-09] MEDS ORDERED: NON-FORMULARY MEDICATION (Dulaglutide [Trulicity] 0.75 MG) SUBCUT SCH (09:00)
== END 2020-04-07 13:54 | disposition home or self-care (01) ==
LOC: N.EDINP 14:21 → N.ED 14:21 → N.EDINP 18:34 → N.TELEN 18:56
PROVIDERS: ADMIT Hospitalist; ATTEND Hospitalist